=== PATIENT | female | born 1980 | race African-American/Black ===

== ENCOUNTER → 2017-01-14 | Outpatient (CLI) | payer MEDICAID ==
--- NOTE | 2017-01-15 05:43 | DIREP ---
PROCEDURE:US BIOPHYSICAL PROFILE W/O NON STRESS COMPARISON:[facility], US, US OB LIMITED, 01/01/2017, 04:35 PM. INDICATIONS:OE.REASON FINDINGS: Breathing:Normal, 2. Movement:Normal, 2. Tone:Normal, 2. Fluid:Normal, 2. Summary Fetus Summary Estimated Weight:3312.31 g Heart Rate:167.46 1/min Gestational Age (BPD):35 weeks, 0 days Gestational Age (HC):36 weeks, 6 days Gestational Age (AC):38 weeks, 4 days Gestational Age (FL):37 weeks, 6 days Amniotic Sac Amniotic Fluid Index:12.39 cm Pelvis and Uterus Cervix Length:3.00 cm EGA based on biometrics: 37 weeks 1 day Cervical Length: 3.0 cm CATHERINE: 12 cm Position: Cephalic Placental Location: Anterior Previa: None demonstrated. CONCLUSION: 1. Normal biophysical profile score of 8/8. 2. No evidence of polyhydramnios. Dictated by: Ricardo Oneal M.D. on 01/15/2017 at 05:40 AM
== END | disposition home or self-care (01) ==
LOC: RAD 15:51
PROVIDERS: ATTEND Hospitalist
DX: O09.523 Supervision of elderly multigravida, third trimester (principal); O40.9XX3 Polyhydramnios, unspecified trimester, fetus 3; Z3A.37 37 weeks gestation of pregnancy
CPT/HCPCS: 59025; 76815; 76819

== ENCOUNTER → 2017-02-04 | Outpatient (CLI) | payer MEDICAID ==
[~2017-02-04] MED LIST: HYDR-926 PO
--- NOTE | 2017-02-04 15:53 | DIREP ---
PROCEDURE:US BIOPHYSICAL PROFILE W/O NON STRESS COMPARISON:[facility], , US OB LIMITED, 01/01/2017, 04:35 PM. [facility], , US BIOPHYSICAL PROFILE W/O NON STRESS, 01/14/2017, 04:26 PM. INDICATIONS: well being FINDINGS: Breathing:Normal, 2. Movement:Normal, 2. Tone:Normal, 2. Fluid:Normal, 2. Total: 8 / 8. Cervical Length: 2.8 cm. CATHERINE: 12.0 cm. Position: Cephalic. Placental Location: Anterior. Previa: None demonstrated. Summary Fetus Summary Estimated Weight:3880 g, (8lbs., 9 oz.), 89.8 % Heart Rate:137 bpm Gestational Age (BPD):9.3 cm, (37 weeks, 6 days) Gestational Age (HC):34.5 cm, (39 weeks, 6 days) Gestational Age (AC):36.3 cm (40 weeks, 1 day) Gestational Age (FL):7.8 cm, (39 weeks, 5 days) EGA based on biometrics: 39 W 3 D ALFRED by US: February 08, 2017 Clinical GA: 40 W 1 D Clinical ALFRED: February 03, 2017 CONCLUSION:Normal biophysical profile Dictated by: ANTOINETTE Physician on 02/04/2017 at 03:38 PM ac
== END | disposition home or self-care (01) ==
LOC: OPOB 12:25
PROVIDERS: ATTEND Hospitalist
DX: O48.0 Post-term pregnancy (principal); Z3A.40 40 weeks gestation of pregnancy
CPT/HCPCS: 59025; 76815; 76819

== ENCOUNTER 2017-02-06 06:15 | Inpatient (IN) | payer MEDICAID, OTHER ==
[~2017-02-06] VITALS: Ht 162.6 cm; Wt 94.3 kg
[2017-02-06 07:50] LABS: APPEARANCE,URINE CLEAR (CLEAR); BILIRUBIN,URINE NEGATIVE (NEGATIVE); UA COLOR YELLOW (YELLOW); UROBILINOGEN,URINE NORMAL (NEGATIVE)
[2017-02-06] MEDS ORDERED: ZOFRAN IV PRN (08:00)
[2017-02-06] MEDS ORDERED: PHENERGAN IV PRN ×2 (08:00)
[2017-02-06] MEDS ORDERED: SUBLIMAZE IV PRN (08:00)
[2017-02-06] MEDS ORDERED: STADOL IV PRN (08:00)
[2017-02-06] MEDS ORDERED: DEMEROL IV PRN (08:00)
[2017-02-06] MEDS ORDERED: NS IV PRN (08:00)
[2017-02-06 08:11] LABS: UR BENZODIAZEPINE QUAL NEGATIVE (NEGATIVE); UR COCAINE QUAL NEGATIVE (NEGATIVE)
[2017-02-06] MEDS ORDERED: CERVIDIL VG STA (08:18)
[2017-02-06 08:23] LABS: MEAN CELL HGB 24.5 pg (26-34); MEAN CELL HGB CONCENTRATION 31.7 g/dL (33-37); MEAN CORP VOLUME 77.2 fL (78-100); MEAN PLATELET VOLUME 10.1 fL (7.8-11.0); RED CELL DISTRIBUTION WIDTH 16.5 % (11.5-14.5); WHITE BLOOD CELL 7.6 10^3/uL (4.5-11.0)
[2017-02-06] MEDS ORDERED: AMPICILLIN SODIUM ONE (10:20)
[2017-02-06] MEDS ORDERED: NS 100ML 100 ML IV ONE (10:21)
[2017-02-06] MEDS ORDERED: AMPICILLIN SODIUM IV ONE (11:00)
[2017-02-06] MEDS ORDERED: AMPICILLIN IV SCH ×2 (12:00→15:00)
[2017-02-06] MEDS ORDERED: NS IV SCH (15:00)
[2017-02-06] MEDS ORDERED: LACTATED RINGERS 1,000 ML ONE (18:30)
[2017-02-06] MEDS ORDERED: CERVIDIL VG ONE (18:30)
[2017-02-06] MEDS ORDERED: LR/PITOCIN 1,000 ML IV ONE (21:02)
[2017-02-06] MEDS ORDERED: LIDOCAINE 1% VIAL ONE (21:05)
[2017-02-06] MEDS ORDERED: WATER ONE (21:05)
[2017-02-06] MEDS ORDERED: LR/PITOCIN 500 ML IV ONE (21:43)
--- NOTE | 2017-02-06 23:44 | PRM.DELNOT ---
Delivery Summary Delivery: Spont. Vaginal Delivery (@ 2305, no Pitocin, only one dose of Cervidil used for induction (pulled at less than 12 hours)) EBL: 200 Repair: 2 Degree (small midline 2nd degree perineal laceration repaired with 2- 0 Chromic in layers; local infiltrated to tissues first) Scores: 8 and 9 Sex of Infant: Female Presentation: vtx SABAS REDMAN MD Feb 06, 2017 23:44
--- NOTE | 2017-02-06 23:54 | PCM.HP ---
OB - Chief Complaint & HPI Date of Admission: Date of Admission: Feb 06, 2017 at 06:15 Diagnosis Lala Boogie is a 36yo black female with PNC with Dianna Mcdaniel CNM in [place], who was to have had a homebirth, but who was transferred to my care a few weeks ago on suspicion of polyhydramnios based on an U/S which Dianna ordered on the patient. U/S here at [facility] showed normal fluid, and patient continued her care with Dianna. When the patient went over 40weeks, the patient came to me for a visit plus an NST/BPP. All was reassuring. There was an issue of elevated BPs during her last couple of visits with Dianna however this has not been an issue here during her admit. The patient presented last night with decreased movement (she lives in [place], [place], having been nomadic during the owing to her 's job), and she decided, at 40 2/7 weeks' gestation, that she would let us induce her labor here in the hospital, rather than await labor at home and go through with the homebirth. I cannot help but wonder if there was a financial consideration here because Dianna does not take patients with Medicaid (which Lala has), as Medicaid in [place] does not reimburse for a homebirth. The patient received one dose of Cervidil placed by me earlier today. She has not received any Pitocin. She is fully dilated now and is ready to push. Chief Complaint/History : 3 Para: 2 EDC: Feb 03, 2017 EGA: 40 3/7 Reason for admission: induction of labor Indication for induction: post dates, maternal discomfort Admission Nurse Assessment Rev: Yes OB - History Hx of Present Care: Good Care Ultrasounds: Normal mid trimester US Obstetrical Complications: None Medical Complications: None Past Family/Social History * Past Medical, Surgical, Family and Obstetric Histories reviewed from chart. GBS Status: Positive (Pt was taking a tincture to prevent her repeat GBS culture from returning as positive, but it did indeed return as positive as well.) OB - Admission Exam Physical Exam HEENT: NCAT Lungs: Clear Abdomen: Gravid Extremities: Normal Reflexes: Normal Cervical Dilatation: 10cm Effacement: 100% Station: +1 Membranes: Ruptured (Pt ruptured her membranes shortly before pushing, while she was in the Caicedo position) Heart Rate: 130's Accelerations: Accelerations Present Decelerations: No Decelerations Facility Manager Variability: Average (6-25) Contractions on Admission: >10 Minutes Apart Intensity: Firm Presentation: vtx OB - Assessment/Plan Assessment Assessment: induction of labor Plan Plan: Expectant Management (PUSH!!) SABAS REDMAN MD Feb 06, 2017 23:54
[2017-02-07] MEDS ORDERED: TYLENOL PO PRN
[2017-02-07] MEDS ORDERED: MYLANTA PO PRN
[2017-02-07] MEDS ORDERED: LR/PITOCIN 500 ML IV SCH
[2017-02-07] MEDS ORDERED: TUCKS TP PRN
[2017-02-07] MEDS ORDERED: DERMOPLAST SPRAY TP PRN
[2017-02-07] MEDS ORDERED: NORCO 5MG PO PRN ×2
[2017-02-07 05:30] LABS: BASOPHIL % 0.1 % (0.0-0.2); EOSINOPHIL % 0.1 % (0.0-5.0); HEMOGLOBIN 9.2 g/dL (12.0-15.0); LYMPHOCYTES # 1.9 10^3/uL (1.0-4.8); LYMPHOCYTES % 10.5 % (24.0-44.0); MEAN CELL HGB 24.5 pg (26-34); MEAN CELL HGB CONCENTRATION 31.7 g/dL (33-37); MEAN CORP VOLUME 77.3 fL (78-100); MEAN PLATELET VOLUME 10.3 fL (7.8-11.0); MONOCYTES # 1.6 10^3/uL (0.3-0.8); MONOCYTES % 8.9 % (5.0-12.0); NEUTROPHIL # 14.7 10^3/uL (1.8-7.7); RED CELL DISTRIBUTION WIDTH 16.4 % (11.5-14.5); WHITE BLOOD CELL 18.4 10^3/uL (4.5-11.0)
[2017-02-07] MEDS: MOTRIN PO PRN ×2 (06:22→12:13)
[2017-02-07] MEDS ORDERED: LANOLIN HYDROUS TP PRN ×3 (06:30)
[2017-02-07] MEDS ORDERED: HYDR-926 PO (12:13)
--- NOTE | 2017-02-07 12:16 | PRM.DC ---
OB Discharge Summary Discharge Summary Discharge Diagnosis: Status Post (Successful induction of labor at 40 3/7 weeks, with just one dose of Cervidil and no Pitocin!) Complications: No Complications Abnormal Lab Results Laboratory Tests Test 02/06/17 00:00 02/06/17 06:34 02/06/17 08:11 02/07/17 05:01 Opiates Screen NEGATIVE Barbiturate Screen NEGATIVE Urine Tricyclic Antidepressants NEGATIVE Phencyclidine (PCP) Screen NEGATIVE Amphetamines Screen NEGATIVE Benzodiazepines Screen NEGATIVE Cocaine Screen NEGATIVE Ur Tetrahydrocannabinol (THC) Scrn NEGATIVE Urine Collection Type UNKNOWN Urine Color YELLOW Urine Appearance CLEAR Urine Bilirubin NEGATIVE MG/DL Urine Ketones NEGATIVE Urine Specific [place] 1.005 Urine pH 7 Urine Protein NEGATIVE Urine Urobilinogen NORMAL Urine Nitrate NEGATIVE Urine Leukocyte Esterase NEGATIVE Urine Blood NEGATIVE Urine Glucose NORMAL White Blood Count 7.6 10^3/uL 18.4 10^3/uL Red Blood Count 4.08 10^6/uL 3.75 10^6/uL Hemoglobin 10.0 g/dL 9.2 g/dL Hematocrit 31.5 % 29.0 % Mean Corpuscular Volume 77.2 fL 77.3 fL Mean Corpuscular Hemoglobin 24.5 pg 24.5 pg Mean Corpuscular Hemoglobin Concent 31.7 g/dL 31.7 g/dL Red Cell Distribution Width 16.5 % 16.4 % Platelet Count 241 10^3/uL 257 10^3/uL Mean Platelet Volume 10.1 fL 10.3 fL Hepatitis B Surface Antigen Negative HIV-1 Antibody NON-REACTIVE Neutrophils (%) (Auto) 80.0 % Lymphocytes (%) (Auto) 10.5 % Monocytes (%) (Auto) 8.9 % Neutrophils # (Auto) 14.7 10^3/uL Lymphocytes # (Auto) 1.9 10^3/uL Monocytes # (Auto) 1.6 10^3/uL Absolute Immature Granulocyte (auto 0.08 10^3 u/L Eosinophils % 0.1 % Basophils % 0.1 % Basophils # 0.0 10^3/uL Eosinophil Count 0.0 10^3/uL Percent Immature Gran (Cell Imm) 0.40 % Medications: Other (Rx for [place] 5/325 #30 no refills--written on triplicate prescription pad) Discharge Disposition: Stable Discharge Instructions: Pelvic Rest x 6 Weeks, Clinic F/U 1-2 Weeks, Regular Diet, Regular Activity, Meds as Prescribed, Call MD for Problems Additional Comments This patient began her PNC with Dianna Mcdaniel CNM and then was referred to me for suspected polyhydramnios, which resolved spontaneously. She wished for an elective induction at 40 3/7 weeks' gestation. SABAS REDMAN MD Feb 07, 2017 12:16
[2017-02-07] MEDS ORDERED: COLACE PO SCH (21:00)
[2017-02-07] MEDS ORDERED: COLACE PO ONE (21:25)
[2017-02-08] MEDS ORDERED: MOTRIN ONE ×2 (08:42→14:14)
[2017-02-08 11:24] VITALS: BP 127/79
== END 2017-02-08 16:00 | disposition home or self-care (01) | DRG 775 ==
LOC: INTOOBSV 06:15 → UNDOADMOB 06:15 → OBSVTOIN 06:15 → EEVIPCON 06:15 → ATP 06:15 → LND 09:00
PROVIDERS: ADMIT Hospitalist; ATTEND Hospitalist
PROC: 3E0P7VZ Introduction of Hormone into Female Reproductive, Via Natural or Artificial Opening (ICD-10-PCS; principal; 2017-02-06)
PROC: 10E0XZZ Delivery of Products of Conception, External Approach (ICD-10-PCS; 2017-02-06)
PROC: 0KQM0ZZ Repair Perineum Muscle, Open Approach (ICD-10-PCS; 2017-02-06)
DX: O36.8190 Decreased fetal movements, unspecified trimester, not applicable or unspecified (principal); O40.3XX0 Polyhydramnios, third trimester, not applicable or unspecified; Z37.0 Single live birth; Z3A.40 40 weeks gestation of pregnancy; O70.1 Second degree perineal laceration during delivery
CPT/HCPCS: 36415; 59400; 80307; 81002; 85025; 85027; 86900; J0290; J2001; J2590; J7050; J7120